=== PATIENT | male | born 2000 | race Caucasian/White ===

== ENCOUNTER 2024-05-09 05:17 | Emergency (ER) | payer OTHER, SELFPAY ==
[2024-05-09 05:19] VITALS: BP 130/80
--- NOTE | 2024-05-09 07:30 | ED.MUSCINJ ---
HPI-Injury
General
Chief Complaint: Musculo-Skeletal Complaint
Source: patient
Exam Limitations: none
Time Seen by Provider: 05/09/24 06:59
History of Present Illness-Injury
Initial Injury comments:
24-year-old male presents complaining of left elbow discomfort. The pain has been ongoing for about a month but worsened this morning where he feels increased pain with motion of his elbow and to the touch. He also notes some swelling. He
endorses that he had a blood draw about 1 month ago in the same area. He denies chest pain or shortness of breath. No associated neck pain. No fevers. No known injury.
Phy Exam
Physical Exam
Physical Exam:
General: Well-appearing male no acute respiratory distress
HEENT: Normocephalic atraumatic
Musculoskeletal exam: Left elbow is tender over the medial aspect of the elbow. He is also slightly tender in the antecubital area. There is no obvious soft tissue swelling overlying erythema he has increased pain with resisted wrist flexion. No
neck tenderness
Vascular demonstrates palpable pulses to the radial and ulnar aspect left wrist
Heart: Regular rate and rhythm
Injury Course
Orders/Labs/Results
Orders:
Orders
05/09/24 07:29
Venous Doppler Upr Ext Left [US Periph Venous UPPER Ext LT] Urgent
Comment:
Reason For Exam: pain in elbow, recent blood draw
MDM/Problems Addressed
Differential Diagnosis Includes:
Left elbow pain. Differential could include epicondylitis versus phlebitis. No signs on exam for abscess or cellulitis. No neck pain to suggest radiculopathy.
Ultrasound of the arm was ordered to evaluate for for blood is versus DVT.
*Critical Care Note
Total Time (30-74mins, 75-104mins- exclusive of procedures): Not Applicable
Update Note
Update Note:
Ultrasound left upper extremity negative for DVT or phlebitis. I suspect tendinitis as source of discomfort. Patient is stable for discharge. Recommend rest and anti-inflammatories.
ED Attending Note
-
Portions of this chart may have been created with voice recognition software.� Occasional wrong word or��sound alike� substitutions may have occurred due to the inherent limitations of voice recognition software.
Discharge Plan
Departure
Patient Disposition: Home (Routine Discharge)
Date of Disposition: 05/09/24
Time of Disposition: 08:56
Patient with high blood pressure during this ER visit?: No
Discharge Problem:
Elbow tendinitis
Instructions: Muscle and Bone Pain (DC)
Referrals:
Monster Corrigan DO [Family Provider] -
Activity Restrictions/Additional Instructions:
Rest. You may use ibuprofen or Tylenol for pain. Return if needed otherwise follow-up with your doctor
Interventions
Interventions:
*Risk Screen - Suicide Last Done: 05/09/24 05:19
*General Assessment Last Done: 05/09/24 07:38
*Neglect/Abuse Screening Last Done: 05/09/24 05:19
ED- Fall Risk Assessment Last Done: 05/09/24 07:38
*ED COVID-19 Vaccine History Last Done: 05/09/24 07:38
ED-Musculoskeletal Assessment Last Done: 05/09/24 07:38
Discharge Date and Time
Print Language: GUAMANIAN
[2024-05-09 07:37] VITALS: BMI 26.1
[2024-05-09 07:38] VITALS: BP 129/78
== END 2024-05-09 09:06 | disposition home or self-care (01) ==
LOC: EMR 05:17
PROVIDERS: EMERGENCY PHYSICIAN Emergency Medicine; FAMILY PHYSICIAN Family Medicine
DX: M77.8 Other enthesopathies, not elsewhere classified (principal)
CPT/HCPCS: 99284; 93971